=== PATIENT | female | born 2000 | race Hispanic/Latino ===

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

== ENCOUNTER 2022-10-07 13:51 | Emergency (ER) | payer OTHER, SELFPAY ==
[~2022-10-07 13:51] MED LIST: Iopamidol-370 76% 500 ML MDV (1 ML CHARGE) ONE
[2022-10-07] MEDS ORDERED: Dicyclomine 20 MG/2 ML VIAL ONE (16:27)
[2022-10-07] MEDS ORDERED: Ondansetron PF 4 MG/2 ML Vial ONE (16:27)
[2022-10-07 16:29] LABS: #Lymphocytes 1.2 thou/uL (1.20-3.40); #Monocytes 0.6 thou/uL (0.11-0.59); %Basophils 0.2 % (0.0-1.0); %Eosinophils 0.3 % (0.0-10.0); %Lymphocytes 8.6 % (28.0-48.0); Hemoglobin 12.6 g/dL (12.0-16.0); Mean Corpuscular HGB CONC 34.7 g/dL (32.0-36.0); Mean Corpuscular Volume 89.4 fl (78.0-98.0); Mean Platelet Volume 7.6 fL (7.4-10.4); Platelet Count 344 10x3/uL (130-400); Red Blood Cell (RBC) Count 4.06 mill/uL (4.00-5.20); White Blood Cell (WBC) Count 13.8 10x3/uL (4.8-10.8)
[2022-10-07 16:38] LABS: BHCG - Serum Negative (NEGATIVE); Pregs Control Background? CLEAR/WHITE (CLR/WHITE); Pregs Control Bar Appear? YES (CONTROL BAR)
[2022-10-07 16:50] LABS: ALT (SGPT) 13 U/L (8-55); AST (SGOT) 22 U/L (5-34); Albumin 4.9 g/dL (3.5-5.0); Alkaline Phosphatase 65 U/L (40-100); Anion Gap 13 mmol/L (10-20); BUN (Urea Nitrogen) 8 mg/dL (7.0-18.7); Bilirubin, Total 0.4 mg/dL (0.2-1.2); Calc. Creatinine Clearance 0 mL/min (70-130); Calcium 9.7 mg/dL (7.8-10.44); Carbon Dioxide 25 mmol/L (22-29); Chloride 107 mmol/L (98-107); Estimated GFR 125; Globulin 3.5 g/dL (2.4-3.5); Glucose 93 mg/dL (70-105); Potassium 3.9 mmol/L (3.5-5.1); Protein, Total 8.4 g/dL (6.0-8.3); Sodium 141 mmol/L (136-145)
[2022-10-07 17:16] LABS: Bacteria/HPF None Seen HPF (None Seen); Bilirubin Negative (Negative); Blood, Urine 1+ (Negative); Clarity Clear (Clear); Glucose, Urine (Dipstick) Normal (Negative); Ketone, Urine Negative (Negative); Leukocyte Negative Leu/uL (Negative); Nitrite Negative (Negative); Protein, Urine (Dipstick) Negative (Neg-Trace); RBC/HPF 0-3 HPF (0-3); Specific Gravity, Urine 1.026 (1.002-1.036); Squamous Epithelial 0-3 HPF (0-3); Urobilinogen Normal mg/dL (Less than 2); WBC/HPF 0-3 HPF (0-3); pH, Urine 7.5 (5.0-9.0)
== END 2022-10-07 19:39 | disposition home or self-care (01) ==
LOC: ERS 13:51
DX: A08.4 Viral intestinal infection, unspecified (principal); N94.6 Dysmenorrhea, unspecified; F17.290 Nicotine dependence, other tobacco product, uncomplicated
CPT/HCPCS: 36415; 74177; 80053; 81003; 81015; 84703; 85025; 96361; 96372; 96374; J2405; Q9967

== ENCOUNTER 2023-05-03 08:32 | Emergency (ER) | payer SELFPAY, OTHER | END 2023-05-03 10:15 | disposition home or self-care (01) | LOC: ERS 08:32 | DX: S01.01XA Laceration without foreign body of scalp, initial encounter (principal); F17.290 Nicotine dependence, other tobacco product, uncomplicated; Y04.8XXA Assault by other bodily force, initial encounter | CPT/HCPCS: 12001 ==

== ENCOUNTER 2023-05-12 10:38 | Emergency (ER) | payer OTHER | END 2023-05-12 11:46 | disposition home or self-care (01) | LOC: ERS 10:38 | DX: S01.01XD Laceration without foreign body of scalp, subsequent encounter (principal); F17.290 Nicotine dependence, other tobacco product, uncomplicated ==

== ENCOUNTER 2023-05-28 04:43 | Emergency (ER) | payer SELFPAY, OTHER ==
[2023-05-28] MEDS ORDERED: Acetaminophen 500 MG TAB ONE (05:37)
[2023-05-28] MEDS ORDERED: Ibuprofen 200 MG TAB ONE (06:47)
== END 2023-05-28 06:49 | disposition home or self-care (01) ==
LOC: ERS 04:43
DX: S41.052A Open bite of left shoulder, initial encounter (principal); S51.852A Open bite of left forearm, initial encounter; R51.9 Headache, unspecified; F17.290 Nicotine dependence, other tobacco product, uncomplicated; Y08.89XA Assault by other specified means, initial encounter
CPT/HCPCS: 70450

== ENCOUNTER 2024-04-06 20:02 | Emergency (ER) | payer BC, SELFPAY ==
[2024-04-06 20:27] LABS: #Basophils 0.03 10x3/uL (0.0-0.2); %Basophils 0.4 % (0.0-1.0); %Eosinophils 1.7 % (0.0-10.0); %Lymphocytes 31.4 % (21.0-51.0); %Monocytes 8.4 % (0.0-10.0); Hematocrit 34.8 % (36.0-47.0); Hemoglobin 10.9 g/dL (12.0-16.0); Mean Corpuscular HGB CONC 31.3 g/dL (32.0-36.0); Mean Corpuscular Hemoglobin 25.2 pg (27.0-31.0); Mean Corpuscular Volume 80.4 fL (78.0-98.0); Mean Platelet Volume 9.3 fL (7.4-10.4); Platelet Count 407 10x3/uL (130-400); RBC Distribution Width 14.1 % (11.5-14.5); Red Blood Cell (RBC) Count 4.33 mill/uL (4.20-5.40)
[2024-04-06] MEDS ORDERED: Ondansetron PF 4 MG/2 ML Vial ONE (20:41)
[2024-04-06] MEDS ORDERED: Ketorolac Tromethamine 30 MG (1 mL) VIAL ONE (20:41)
[2024-04-06 20:50] LABS: Bacteria/HPF None Seen HPF (None Seen); Bilirubin Negative (Negative); Blood, Urine Negative (Negative); CAUTI Indications for Culture Dysuria,urgency,freq; Clarity Clear (Clear); Glucose, Urine (Dipstick) Normal (Negative); Ketone, Urine Negative (Negative); Leukocyte Negative Leu/uL (Negative); Nitrite Negative (Negative); Protein, Urine (Dipstick) Negative (Neg-Trace); RBC/HPF 0-3 HPF (0-3); Specific Gravity, Urine 1.028 (1.002-1.036); Squamous Epithelial 0-3 HPF (0-3); WBC/HPF 0-3 HPF (0-3)
[2024-04-06 20:54] LABS: ALT (SGPT) 10 U/L (8-55); AST (SGOT) 18 U/L (5-34); Albumin 3.5 g/dL (3.5-5.0); Alkaline Phosphatase 60 U/L (40-110); Anion Gap 11 mmol/L (10-20); BUN (Urea Nitrogen) 8 mg/dL (7.0-18.7); Bilirubin, Total 0.3 mg/dL (0.2-1.2); Calc. Creatinine Clearance 0 mL/min (70-130); Calcium 8.6 mg/dL (7.8-10.44); Carbon Dioxide 20 mmol/L (22-29); Chloride 112 mmol/L (98-107); Estimated GFR 129; Glucose 90 mg/dL (70-105); Lipase 18 U/L (8-78); Potassium 3.8 mmol/L (3.5-5.1); Protein, Total 6.5 g/dL (6.0-8.3); Sodium 139 mmol/L (136-145)
[2024-04-06 20:56] LABS: Urine Culture Reflex No No
[2024-04-06 20:59] LABS: Pregnancy Test - Urine (BHCG) Negative (Negative); Pregu Control Background? CLEAR/WHITE (CLR/WHITE); Pregu Control Bar Appear? YES (CONTROL BAR); Specific Gravity 1.028 (1.002-1.036)
[2024-04-06] MEDS ORDERED: HYDROcodone/Acetaminophen 5/325 mg Tablet ONE (22:07)
== END 2024-04-07 00:10 | disposition home or self-care (01) ==
LOC: ERS 20:02
DX: N83.201 Unspecified ovarian cyst, right side (principal); K59.00 Constipation, unspecified; R11.0 Nausea
CPT/HCPCS: 36415; 74176; 76856; 80053; 81001; 81025; 83690; 85025; 96374; 96375; J1885; J2405

== ENCOUNTER 2024-07-03 19:59 | Emergency (ER) | payer BC, SELFPAY ==
[2024-07-03] MEDS ORDERED: Acetaminophen 325 MG TAB ONE (20:08)
[2024-07-03] MEDS ORDERED: Lidocaine 1% (PF) 30 ML VIAL ONE (21:30)
[2024-07-03] MEDS ORDERED: Bacitracin 1 PK ONE (21:33)
== END 2024-07-03 23:10 | disposition home or self-care (01) ==
LOC: ERS 19:59
DX: S61.302A Unspecified open wound of right middle finger with damage to nail, initial encounter (principal); W23.0XXA Caught, crushed, jammed, or pinched between moving objects, initial encounter; Y93.E2 Activity, laundry
CPT/HCPCS: 64450